=== PATIENT | female | born 1985 | race Caucasian/White ===

== ENCOUNTER 2019-02-02 05:56 | Day surgery (SDC) | payer OTHER ==
[2019-01-26 12:03] LABS: ABSOLUTE EOSINOPHILS # (AUTO) 0.1 10^3/uL (0.0-0.6); ABSOLUTE LYMPHOCYTES (AUTO) 2.8 10^3/uL (0.5-4.7); ABSOLUTE MONOCYTES (AUTO) 0.4 10^3/uL (0.1-1.4); ABSOLUTE NEUT (AUTO) 4.8 10^3/uL (1.7-8.2); BASOPHILS % (AUTO) 0.3 % (0-2); EOSINOPHILS % (AUTO) 1.3 % (0-6); HEMATOCRIT 40.9 % (36.0-47.0); HEMOGLOBIN 13.9 g/dL (12.0-15.5); LYMPHOCYTES % (AUTO) 33.8 % (13-45); MEAN CORPUSCULAR HEMOGLOBIN 30.5 pg (27.0-33.4); MEAN CORPUSCULAR VOLUME 90 fl (80-97); MONOCYTES % (AUTO) 5.4 % (3-13); PLATELET COUNT 286 10^3/uL (150-450); RED BLOOD COUNT 4.55 10^6/uL (3.72-5.28); RED CELL DISTRIBUTION WIDTH 13.1 % (11.5-14.0); SEGMENTED NEUTROPHILS % (AUTO) 59.2 % (42-78); TOTAL CELLS COUNTED % (AUTO) 100 %; WHITE BLOOD COUNT 8.1 10^3/uL (4.0-10.5)
[2019-01-26 12:37] LABS: ANION GAP 11 (5-19); BLOOD UREA NITROGEN 19 mg/dL (7-20); CARBON DIOXIDE 24 mmol/L (22-30); CHLORIDE 108 mmol/L (98-107); GLUCOSE 82 mg/dL (75-110); POTASSIUM 5.3 mmol/L (3.6-5.0); SODIUM 142.8 mmol/L (137-145)
[~2019-02-02 05:56] MED LIST: CEFAZOLIN 2 GM/D5W RTU 2 GM/50 ML RTUPB IV ONE; GABAPENTIN 400 MG CAPSULE ONE; GABAPENTIN 400 MG CAPSULE PO SCH; RINGERS SOLUTION,LACTATED 1,000 ML IV PRN
[2019-02-02] MEDS ORDERED: FENTANYL CITRATE INJ/PF 250 MCG/5 ML AMPULE ONE (06:54)
[2019-02-02] MEDS ORDERED: MIDAZOLAM 2 MG/2 ML INJ ONE ×2 (06:54→10:24)
[2019-02-02] MEDS ORDERED: SUGAMMADEX SODIUM 200 MG/2 ML SDV IV ONE (06:55)
[2019-02-02] MEDS ORDERED: PROPOFOL INJ 200 MG/20 ML VIAL IV ONE (06:55)
[2019-02-02 06:59] LABS: ALANINE AMINOTRANSFERASE 27 U/L (9-52); ALBUMIN 4.3 g/dL (3.5-5.0); ALKALINE PHOSPHATASE 40 U/L (38-126); ANION GAP 11 (5-19); ASPARTATE AMINO TRANSFERASE 21 U/L (14-36); BILIRUBIN,DIRECT 0.2 mg/dL (0.0-0.4); BILIRUBIN,TOTAL 0.4 mg/dL (0.2-1.3); BLOOD UREA NITROGEN 17 mg/dL (7-20); CALCIUM 9.4 mg/dL (8.4-10.2); CARBON DIOXIDE 22 mmol/L (22-30); CHLORIDE 108 mmol/L (98-107); GLUCOSE 91 mg/dL (75-110); POTASSIUM 3.6 mmol/L (3.6-5.0); SODIUM 141.1 mmol/L (137-145)
[2019-02-02] MEDS ORDERED: BUPIVACAINE HCL 0.25 % INJ/PF (2.5 MG/1 ML) 30 ML VIAL ONE (07:23)
[2019-02-02] MEDS: CEFAZOLIN 2 GM/D5W RTU 2 GM/50 ML RTUPB IV SCH ×2 (07:35→08:02)
[2019-02-02] MEDS ORDERED: DIPHENHYDRAMINE HCL 50 MG/ML VIAL IV PRN (08:03)
[2019-02-02] MEDS ORDERED: MORPHINE SULFATE 10 MG/ML INJ IV PRN (08:03)
[2019-02-02] MEDS ORDERED: OXYCODONE-ACETAMINOPHEN 5-325 MG TABLET PO PRN ×2 (08:03)
[2019-02-02] MEDS ORDERED: PROMETHAZINE HCL INJ 25 MG/1 ML VIAL IV PRN ×3 (08:03→17:56)
[2019-02-02] MEDS ORDERED: MEPERIDINE HCL/PF INJ 25 MG/1 ML DISP.SYRIN IV PRN (08:03)
[2019-02-02] MEDS ORDERED: FENTANYL CITRATE INJ/PF 100 MCG/2 ML AMPUL IV PRN ×3 (08:03)
[2019-02-02] MEDS ORDERED: ACETAMINOPHEN 1,000 MG/100 ML RTUPB IV ONE (09:53)
[2019-02-02] MEDS ORDERED: FENTANYL CITRATE INJ/PF 100 MCG/2 ML AMPUL ONE (10:09)
[2019-02-02] MEDS ORDERED: ONDANSETRON HCL INJ/PF 4 MG/2 ML SDV ONE ×2 (10:11→12:10)
[2019-02-02] MEDS ORDERED: HYDROMORPHONE HCL INJ/PF 2 MG/ML AMPULE ONE (10:24)
[2019-02-02] MEDS ORDERED: PROMETHAZINE HCL INJ 25 MG/1 ML VIAL ONE (10:35)
[2019-02-02] MEDS ORDERED: ONDANSETRON HCL INJ/PF 4 MG/2 ML SDV IV PRN (10:51)
--- NOTE | 2019-02-02 10:52 | Discharge Summary ---
Discharge Summary (SDC) - Discharge Final Diagnosis: Pelvic Pain Endometriosis Abnormal uterine bleeding Date of Surgery: 02/02/19 Discharge Date: 02/02/19 Condition: Good Forms: Post Operative Treatment or Instructions: Robotic assisted total laparoscopic hysterectomy, bilateral salpingectomy, left ovarian cystectomy Cystoscopy Referrals: DALI OCHOA MD [NO LOCAL MD] - (Call [phone] to make your 2 week follow up appt. Call the INTENSIVE CARE SPECIALIST RN at [phone] for clinical questions or concerns. ) Discharge Diet: As Tolerated Respiratory Treatments at Home: Deep Breathing/Coughing Discharge Activity: Activity As Tolerated, Balance Activity w/Rest, No Lifting Over 10 Pounds, Pelvic Rest, Slowly Increase Activity Home Care Assistance: None Needed Report the Following to Your Physician Immediately: Vomiting, Increase in Pain, Fever over 101 Degrees, Unusual Bleeding, Drainage-Foul Smelling, Increased Vaginal Bleed, Large Clots, IV Site Infection Signs, Urinary Infection Signs
[2019-02-02] MEDS ORDERED: (PENDING PHARMACY ID) (Nitrofurantoin Macrocrystal [Macrodantin] 100 MG) PO PRN (11:40)
[2019-02-02] MEDS ORDERED: KETOROLAC TROMETHAMINE 60 MG/2 ML SDV ONE (12:10)
[2019-02-02] MEDS ORDERED: NEOSTIGMINE METHYLSULFATE 10 MG/10 ML VIAL ONE (12:10)
[2019-02-02] MEDS ORDERED: GLYCOPYRROLATE 1 MG/5 ML VIAL ONE (12:10)
[2019-02-02] MEDS ORDERED: LIDOCAINE 2% INJ-PF (20 MG/ML) 2 ML AMPUL ONE (12:10)
[2019-02-02] MEDS ORDERED: ROCURONIUM BROMIDE INJ 50 MG/5 ML VIAL IV ONE (12:10)
[2019-02-02] MEDS ORDERED: DEXAMETHASONE SOD PHOSPHATE INJ 4 MG/1 ML VIAL ONE (12:10)
[2019-02-02] MEDS: OXYCODONE HCL IR 5 MG TABLET PO PRN ×3 (12:41→23:43)
[2019-02-02] MEDS ORDERED: NITROFURANTOIN MONOHYD/M-CRYST 100 MG CAPSULE PO PRN (15:55)
[2019-02-02] MEDS ORDERED: METOCLOPRAMIDE HCL INJ/PF 10 MG/2 ML SDV IV PRN (17:56)
[2019-02-02] MEDS ORDERED: ACETAMINOPHEN 1,000 MG/100 ML RTUPB IV PRN (17:57)
[2019-02-02] MEDS ORDERED: TOPIRAMATE 25 MG TABLET PO SCH (18:00)
[2019-02-02] MEDS ORDERED: TOPIRAMATE 100 MG TABLET PO SCH (18:00)
[2019-02-02] MEDS: KETOROLAC TROMETHAMINE INJ/PF 30 MG/1 ML SDV IV PRN (18:40)
[2019-02-03] MEDS: KETOROLAC TROMETHAMINE INJ/PF 30 MG/1 ML SDV IV PRN (04:04)
[2019-02-03 08:51] VITALS: BP 110/56
[2019-02-03] MEDS ORDERED: LORATADINE 10 MG TABLET PO SCH (10:00)
[2019-02-03] MEDS ORDERED: (PENDING PHARMACY ID) (Loratadine [Claritin] 10 MG) PO SCH ×2 (10:00)
[2019-02-03] MEDS ORDERED: FLUOXETINE HCL 20 MG CAPSULE PO SCH (10:00)
--- NOTE | 2019-02-16 18:54 | OPERATIVE REPORT E ---
Operative Report NAME: CECILIA BUSBY : 1985 AGE: 33Y DATE OF SURGERY: 02/02/2019 ROOM: 206 PREOPERATIVE DIAGNOSIS: IRREGULAR BLEEDING, PELVIC PAIN UNRESPONSIVE TO MEDICAL TREATMENT. POSTOPERATIVE DIAGNOSIS: IRREGULAR BLEEDING, PELVIC PAIN UNRESPONSIVE TO MEDICAL TREATMENT. OPERATION: ROBOTIC ASSISTED TOTAL LAPAROSCOPIC HYSTERECTOMY AND BILATERAL SALPINGECTOMY, LEFT OVARIAN CYSTECTOMY. SURGEON: DALI OCHOA M.D. ANESTHESIA: General. COMPLICATIONS: None. ESTIMATED BLOOD LOSS: 150 mL. URINE: Clear at the end of the procedure. SPECIMEN: Uterus, cervix, bilateral fallopian tubes, left ovarian cyst. FINDINGS: Mildly enlarged uterus, normal appearing fallopian tubes, left ovarian cyst, otherwise normal appearing ovaries. INDICATIONS: This is a 33-year-old female, -0-0-1 with a history of low transverse section here with history of abnormal uterine bleeding and pelvic pain despite therapy with intrauterine device and p.o. progesterone. She has also been on combination of oral contraceptive pills in the past without resolution. She has a history of endometriosis on laparoscopy. She does continue with pelvic pain. She has completed childbearing and desires definitive surgical treatment. After discussing the risks, benefits, and alternatives including but not limited to observation, further medical management, open surgical management, she elected for the above procedure. PROCEDURE: She was properly consented and taken to the operating room, where general anesthesia induced with endotracheal intubation. She was placed in adjustable Tylor stirrups in a dorsal lithotomy position, prepped and draped in the usual sterile fashion. A surgical timeout was held. Cantu catheter was placed and a VCare uterine manipulator was sized and placed in the usual fashion. I changed my gloves and proceeded above, where 0.25% Marcaine local anesthetic was placed infraumbilical. A 12 mm skin incision was made in the umbilicus with the scalpel, followed by a Veress needle introduced into the peritoneal cavity, and a drop in CO2 pressure to 1 mmHg, confirming intraperitoneal placement. The pneumoperitoneum was established to a pressure of 15 mmHg and the Veress needle was removed. Next, the 12 mm bladeless trocar was advanced into the pneumoperitoneum and immediate visualization with the camera demonstrated an atraumatic entry and the findings were noted above. We subsequently placed two lateral and one left lateral port all 8 mm in size, followed by the typical routine of local anesthetic followed by a skin incision and placement of the port under direct visualization. With all ports in place, the patient was placed in steep Trendelenburg. The robot was docked and I scrubbed out and proceeded to the robotic console. Pelvic anatomy was again inspected and the ureters were identified by peristalsis and their usual course at the pelvic brim bilaterally. Dissection was begun on the right hand side, using the fenestrated bipolar graspers and the vessel sealer. The fallopian tube was dissected from the tubo-ovarian ligament and the ovary was dissected from the uterus at the uterovarian ligament. The dissection was continued along the broad ligament. The round ligament was then cauterized and transected as well. The broad ligament was opened and dissected inferiorly and anteriorly, and the bladder flap was created and reduced inferiorly. Next, the uterine artery was identified and dissection with cautery and transection was used to dissect and transect the uterine artery at the area next to the lower uterine segment. Then, carefully hugging the uterus, the dissection was continued along the side of the cervix to the top of the *------*. The same dissection was completed on the left side as well. The areas of dissection were noted to be hemostatic. At this point, attention was turned to the left simple-appearing ovarian cyst. The cyst was opened with the vessel sealer, drained, and the cyst wall was dissected from the ovarian tissue. The cyst wall bed was cauterized and hemostasis was excellent. The remainder of the ovary looked healthy. The cyst wall was removed through the laparoscopic port and handed off to be sent to Pathology. Next, the monopolar scissors replaced the vessel sealer and colpotomy was initiated with the monopolar scissors, and carried around circumferentially until the specimen was free and pulled through the vagina. The vaginal cuff was closed with running V-Loc 3-0 Monocryl suture incorporating the uterosacral pedicles for support of the vaginal cuff. The pelvis was irrigated copiously and hemostasis was noted. FloSeal hemostatic agent was applied to the area over the vaginal cuff and the dissected broad ligaments. The abdomen was relieved of all CO2 insufflation and all the instruments were removed. The robot was undocked and all ports were removed. The patient was taken out of Trendelenburg. The 12 mm port site fascia was closed with 0 Vicryl suture in interrupted fashion, and the skin was closed on all ports with 4-0 Monocryl in a subcuticular fashion, and Dermabond dressing was applied. Anesthesia was reversed. Sponge, lap, and needle counts were correct at the end of the procedure, and the patient was taken to the PACU in stable condition. DICTATING PHYSICIAN: DALI OCHOA M.D. [id number] PHY#: [id number] ID: [id number] JOB#: [id number] ACCT: [id number] cc:DALI OCHOA M.D. >
== END 2019-02-03 10:37 | disposition home or self-care (01) ==
LOC: OROUT 05:56 → 2N 11:18 → OROUT 02-03 10:37
PROVIDERS: ATTEND Obstetrics & Gynecology
DX: R10.2 Pelvic and perineal pain (principal); N84.0 Polyp of corpus uteri; N83.8 Other noninflammatory disorders of ovary, fallopian tube and broad ligament; N83.292 Other ovarian cyst, left side; N93.9 Abnormal uterine and vaginal bleeding, unspecified; N80.9 Endometriosis, unspecified
CPT/HCPCS: 58571; 58662; S2900; 36415; 80048; 80053; 840; 84703; 85025; 86850; 86900; 86901; 88305; 88307; J0131; J0690; J1100; J1170; J1885; J2250; J2405; J2550; J2704; J2710; J3010; J3490; J7120